=== PATIENT | female | born 1950 | race Caucasian/White ===

== ENCOUNTER → 2021-03-11 | Outpatient (CLI) | payer OTHER ==
[~2021-03-11] MED LIST: ACETYL L-CARNI500 MG PO; ASPIRIN CHEWABL81 MG PO; BIOTIN1 M1 PO; CALCIUM 600 +1 EAC8 PO; DHEA TABLET1 EACH PO; EFFEXOR XR150 MG PO; FEOSOL325 MG PO; FLAXSEED-FISH-400 MG PO; GINGER500 MG PO; HYDROCODON-ACE1 EAC2 PO; MAGNESIUM CITRATE PO; MAGNESIUM OXID250 MG PO; MIRAPEX1 MG PO; N-ACETYL-L-CYS600 MG PO; NEURONTIN 300300 MG PO; NORCO 10-325 T1 EACH PO; P5P PO; PATADAY2.5 ML OU; PROLAMINE IODINE PO; SELENIUM100 MCG PO; SELENIUM50 MCG PO; TURMERIC1 GM PO; VITAMIN B COMP1 EACH PO; VITAMIN E400 UNI2 PO; ZINC CITRATE PO; [UNRECOGNIZED DRUG - OTHER] PO; [UNRECOGNIZED DRUG - OTHER] PO; [UNRECOGNIZED DRUG - OTHER] PO; [UNRECOGNIZED DRUG - OTHER] PO; [UNRECOGNIZED DRUG - OTHER] PO; [UNRECOGNIZED DRUG - OTHER] PO; [UNRECOGNIZED DRUG - OTHER] PO
[2021-03-11 12:54] LABS: HEMOGLOBIN 12.1 gm/dl (12.3-15.3); RED BLOOD COUNT 3.75 M/UL (4.00-5.10); WHITE BLOOD COUNT 4.8 K/UL (4.5-11.0)
[2021-03-11 13:12] LABS: BUN/CREATININE RATIO 20 (0-10)
== END ==
LOC: LAB 12:00
PROVIDERS: Nurse Practitioner Family
DX: R07.89 Other chest pain (principal)
CPT/HCPCS: 36415; 80053; 82550; 82553; 84484; 85027

== ENCOUNTER → 2021-03-27 | Outpatient (CLI) | payer OTHER | LOC: ECHO 11:45 → NM 13:00 | DX: I45.10 Unspecified right bundle-branch block (principal); E78.5 Hyperlipidemia, unspecified; R55 Syncope and collapse; R94.31 Abnormal electrocardiogram [ECG] [EKG]; R07.89 Other chest pain; Z68.25 Body mass index [BMI] 25.0-25.9, adult; I08.3 Combined rheumatic disorders of mitral, aortic and tricuspid valves | CPT/HCPCS: ECHO; 78452; 93017; 93306; A9502 ==

== ENCOUNTER → 2021-08-06 | Outpatient (CLI) | payer OTHER | LOC: HEART 5 11:00 | DX: R07.89 Other chest pain (principal); R94.31 Abnormal electrocardiogram [ECG] [EKG]; I45.10 Unspecified right bundle-branch block; R55 Syncope and collapse ==

== ENCOUNTER → 2021-11-26 | Outpatient (CLI) | payer OTHER | LOC: CATH 10:00 | DX: R55 Syncope and collapse (principal) ==